=== PATIENT | female | born 1985 | race Caucasian/White ===

== ENCOUNTER 2019-01-30 20:34 | Emergency (ER) | payer BC ==
[2019-01-30 20:49] VITALS: BP 120/80
--- NOTE | 2019-01-30 21:31 | UC ---
Respiratory Complaint HPI - HPI Summary HPI Summary: Patient is a 33yo female presenting with shortness of breath x1 month that she states has worsened tonight. She has an appointment with PCP for further workup of this on Friday but states she cannot wait that long. She is unable to describe how her chest feels but denies any pain. Says she "just knows she is not processing enough oxygen." Also notes feeling lightheaded at times to the point where she feels like she may pass out. Notes SOB even at rest. She notes some nasal congestion and mild productive cough from a cold she had last week. Admits to feeling anxious. Denies fever and chills. Denies n/v/d. Denies history of asthma or other lung problems. States she has an albuterol inhaler she received from her PCP and that she used it once today without relief. She believes she may benefit from a breathing treatment today. - History of Current Complaint Chief Complaint: UCRespiratory Stated Complaint: RESPIRATORY Hx Obtained From: Patient Hx Last Menstrual Period: IUD Severity Currently: None Pain Intensity: 0 Pain Scale Used: 0-10 Numeric - Allergies/Home Medications Allergies/Adverse Reactions: Allergies Allergy/AdvReac Type Severity Reaction Status Date / Time sulfamethoxazole Allergy Hives Verified 01/30/19 20:49 [From Bactrim] trimethoprim [From Bactrim] Allergy Hives Verified 01/30/19 20:49 Home Medications: Home Medications Albuterol HFA INHALER* [Ventolin HFA Inhaler*] 01/30/19 [History] Cetirizine* [ZyrTEC 10 MG TAB*] 10 mg PO DAILY 01/30/19 [History Confirmed 01/30] Escitalopram * [Lexapro 5 mg (NF)] 7.5 mg PO DAILY 01/30/19 [History Confirmed 01/30/19] Gabapentin CAP(*) [Neurontin 300 CAP(*)] 300 mg PO DAILY 01/30/19 [History Confirmed 01/30/19] diPHENhydraMINE PO* [Benadryl PO 25 MG TAB*] 25 mg PO DAILY 01/30/19 [History Confirmed 01/30/19] PMH/Surg Hx/FS Hx/Imm Hx Psychological History: Depression - Surgical History Surgical History: Yes Surgery Procedure, Year, and Place: tonsillectomy - Family History Known Family History: Positive: Unknown - Social History Alcohol Use: Occasionally Substance Use Type: Marijuana Substance Use Comment - Amount & Last Used: used vape pen to smoke marijuana ~1 month ago Smoking Status (MU): Never Smoked Tobacco Review of Systems All Other Systems Reviewed And Are Negative: Yes Constitutional: Positive: Negative Eyes: Positive: Negative. Negative: Blurred Vision, Diplopia ENT: Positive: Sinus Congestion. Negative: Sore Throat, Ear Ache, Nasal Discharge, Sinus Pain/Tenderness Respiratory: Positive: Shortness Of Breath, Cough Cardiovascular: Positive: Negative. Negative: Palpitations, Chest Pain Gastrointestinal: Positive: Negative Musculoskeletal: Positive: Negative Neurological: Positive: Other - dizziness. Negative: Headache Psychological: Positive: Anxious Physical Exam Triage Information Reviewed: Yes Appearance: Well-Appearing, No Pain Distress, Well-Nourished Vital Signs: Initial Vital Signs Temp 98.2 F 01/30/19 20:44 Pulse 82 01/30/19 20:44 Resp 18 01/30/19 20:44 BP 120/80 01/30/19 20:44 Pulse Ox 100 01/30/19 20:44 Vital Signs Reviewed: Yes Eyes: Positive: Conjunctiva Clear ENT Exam: Normal ENT: Positive: Hearing grossly normal, Pharynx normal, TMs normal, Uvula midline. Negative: Nasal congestion, Nasal drainage, Trismus, Muffled voice, Hoarse voice Neck exam: Normal Neck: Positive: Supple Respiratory Exam: Normal Respiratory: Positive: Lungs clear, Normal breath sounds, No respiratory distress, No accessory muscle use. Negative: Crackles, Rhonchi, Stridor, Wheezing, Plerual rub Cardiovascular Exam: Normal Cardiovascular: Positive: RRR. Negative: Tachycardia Neurological: Positive: Alert Psychological: Positive: Other: - Patient appeared anxious Respiratory Course/Dx - Course Course Of Treatment: Patient received breathing treatment here. Patient noted some relief afterward, but was still certain she was not getting enough oxygen. I did another pulse ox to show her the oxygen saturation before discharging her, which was 100%. Received incentive spirometer dispensed home. Instructed to continue her allergy medication, inhaler, and incentive spirometer as directed at home. I highly encouraged her to attend her appointment with her PCP on Friday for further evaluation of her SOB. Also instructed her to avoid strenuous activity until then that may exacerbate the SOB she feels. Her VS were normal throughout visit, including her pulse ox. She exhibited no signs of respiratory distress. Directed her to go to the ED if her symptoms worsen. Patient voiced understanding and agreed to the treatment plan. - Differential Dx/Diagnosis Provider Diagnosis: Shortness of breath Discharge ED - Sign-Out/Discharge Documenting (check all that apply): Patient Departure All imaging exams completed and their final reports reviewed: No Studies - Discharge Plan Condition: Stable Disposition: HOME Patient Education Materials: Shortness of Breath (ED) Referrals: Mere Dey MD [Primary Care Provider] - As Soon As Possible Additional Instructions: You received a breathing treatment tonight to help relieve your shortness of breath. You may continue to use your albuterol inhaler at home as directed for shortness of breath. You may use over the counter decongestants like Mucinex to help relieve any congestion you are experiencing. Refrain from any physical activity that may worsen your shortness of breath. Go home and rest until your appointment on Friday. Be sure to attend your scheduled appointment with your PCP on Friday for further evaluation. Go to the emergency room if you experience fainting, worsening shortness of breath, or chest pain. - Billing Disposition and Condition Condition: STABLE Disposition: Home
[2019-01-30] MEDS ORDERED: Albuterol 2.5 MG/3 ML NEB.SOL* (0.083%) INH ONE (21:38)
== END 2019-01-30 22:26 | disposition home or self-care (01) ==
LOC: UCEAST 20:34
DX: R06.02 Shortness of breath (principal); F32.9 Major depressive disorder, single episode, unspecified; Z88.2 Allergy status to sulfonamides; Z79.899 Other long term (current) drug therapy
CPT/HCPCS: 99212; G0463